=== PATIENT | male | born 1945 | race Caucasian/White ===

== ENCOUNTER 2024-06-18 16:01 | Outpatient (RCR) | payer MEDICARE, OTHER, SELFPAY | END 2024-06-18 23:59 | disposition home or self-care (01) | LOC: RPT 16:01 | PROVIDERS: ATTENDING PHYSICIAN Family Medicine | DX: R26.89 Other abnormalities of gait and mobility (principal); Z73.6 Limitation of activities due to disability; M62.81 Muscle weakness (generalized) | CPT/HCPCS: 97110; 97112; 97163; 97530 ==

== ENCOUNTER 2024-07-16 16:50 | Outpatient (RCR) | payer MEDICARE, OTHER, SELFPAY | END 2024-07-16 23:59 | disposition home or self-care (01) | LOC: RPT 16:50 | PROVIDERS: ATTENDING PHYSICIAN Family Medicine | DX: R26.89 Other abnormalities of gait and mobility (principal); Z73.6 Limitation of activities due to disability; M62.81 Muscle weakness (generalized) | CPT/HCPCS: 97110; 97112; 97530 ==

== ENCOUNTER 2024-08-13 17:00 | Outpatient (RCR) | payer MEDICARE, OTHER, SELFPAY | END 2024-08-14 06:25 | disposition home or self-care (01) | LOC: RPT 17:00 | PROVIDERS: ATTENDING PHYSICIAN Family Medicine | DX: R26.89 Other abnormalities of gait and mobility (principal); Z73.6 Limitation of activities due to disability; M62.81 Muscle weakness (generalized) | CPT/HCPCS: 97110; 97112; 97116; 97530 ==